=== PATIENT | male | born 1980 | race Caucasian/White ===

== ENCOUNTER 2017-12-05 16:15 | Emergency (ER) | payer BC ==
[~2017-12-05] VITALS: Ht 175.3 cm; Wt 109.8 kg
--- NOTE | 2017-12-05 16:55 | Emergency Room Report ---
History of Present Illness General Chief Complaint: Sore Throat Source: Patient Present Illness HPI 37-year-old male presents to the emergency department complaining of 4 out of 10 in severity sore throat with white spots 3 days. Patient states beginning Saturday afternoon until Saturday morning he was experiencing fevers and sweats. He reports multiple ill contacts at his work. He denies cough, nasal congestion or rhinorrhea. Patient states he took some DayQuil. Reports swollen tonsils. Throat pain is exacerbated upon swallowing. Denies ear pain, high fevers, lethargy, neck pain/stiffness, irritability, photophobia dehydration, N/V/D. Denies Cp, Palpitations, LOC, AMS, seizures, paresthesias, or changes in Hearing or vision, no Sudden severe MURILLO. Allergies: Coded Allergies: No Known Allergies (Unverified , 12/05/17) Patient History Past Medical History: see triage record Past Surgical History: none Pertinent Family History: none Reviewed Nursing Documentation: PMH: Agreed; PSxH: Agreed Nursing Documentation-PMH Past Medical History: No Stated History Review of Systems All Other Systems: negative except mentioned in HPI Physical Exam Vital Signs Date Time Temp Pulse Resp B/P (MAP) Pulse Ox O2 Delivery O2 Flow Rate FiO2 12/05/17 16:36 98.5 67 16 124/66 96 Room Air 98.4 Sp02 EP Interpretation: reviewed, normal General Appearance: no apparent distress, alert, GCS 15, non-toxic Head: normocephalic, atraumatic Eyes: bilateral eye normal inspection, bilateral eye PERRL ENT: normal voice, TMs + canals normal, uvula midline, moist mucus membranes, tonsillar swelling, pharyngeal erythema, tonsillar exudate Neck: full range of motion, no meningismus Respiratory: chest non-tender, lungs clear, normal breath sounds, speaking full sentences Cardiovascular #1: regular rate, rhythm Musculoskeletal: back normal, gait/station normal, normal range of motion, non- tender Neurologic: alert, oriented x3, responsive, motor strength/tone normal, sensory intact, speech normal, grossly normal Psychiatric: judgement/insight normal Skin: normal color, no rash, warm/dry, well hydrated Lymphatic: other - bilateral subparotid LAD Medical Decision Making PA Attestation Dr. Dumont is my supervising Physician whom patient management has been discussed with. Diagnostic Impression: Primary Impression: Pharyngitis Qualified Codes: J02.0 - Streptococcal pharyngitis ER Course 37-year-old male presents to the emergency department complaining of 4 out of 10 in severity sore throat with white spots 3 days. Patient states beginning Saturday afternoon until Saturday morning he was experiencing fevers and sweats. He reports multiple ill contacts at his work. He denies cough, nasal congestion or rhinorrhea. Patient states he took some DayQuil. Reports swollen tonsils. Throat pain is exacerbated upon swallowing. Denies ear pain, high fevers, lethargy, neck pain/stiffness, irritability, photophobia dehydration, N/V/D. Denies Cp, Palpitations, LOC, AMS, seizures, paresthesias, or changes in Hearing or vision, no Sudden severe MURILLO. Ddx considered but are not limited to: pharyngitis, strep, [employer], ludwigs angina, URI Vital signs: are WNL, pt. is afebrile H&PE are most consistent with: pharyngitis presumed strep. ORDERS: None required at this time as the diagnosis is clinical ED INTERVENTIONS: 8mg Decadron IM DISCHARGE: At this time pt. is stable for d/c to home. Will provide printed patient care instructions, and any necessary prescriptions. Care plan and follow up instructions have been discussed with the patient prior to discharge. Last Vital Signs Date Time Temp Pulse Resp B/P (MAP) Pulse Ox O2 Delivery O2 Flow Rate FiO2 12/05/17 16:36 98.5 67 16 124/66 96 Room Air 98.4 Disposition: HOME, SELF-CARE Condition: Stable Patient Instructions: Strep Throat, Sore Throat Additional Instructions: Take medications as directed. Follow up with a Primary Care Provider in 3-5 days, even if your symptoms have resolved. --Please review list of primary care clinics, if you do not already have a primary care provider Return sooner to ED if new symptoms occur, or current symptoms become worse. - Please note that this Emergency Department Report was dictated using [employer] tester technology software, occasionally this can lead to erroneous entry secondary to interpretation by the dictation equipment. Ijeoma Goyal Dec 05, 2017 16:55
[2017-12-05] MEDS ORDERED: Dexamethasone 4mg/ml vial IM ONE (17:00)
[2017-12-05] MEDS ORDERED: AUGMENTIN 875-1 EAC1 ORAL (17:09)
[2017-12-05] MEDS ORDERED: TYLENOL EXTRA500 MG ORAL (17:09)
[2017-12-05 17:13] VITALS: BP 135/68
[2017-12-05 17:18] VITALS: BP 135/68
== END 2017-12-05 17:18 | disposition home or self-care (01) ==
LOC: EMR 17:05
DX: J02.9 Acute pharyngitis, unspecified (principal)
CPT/HCPCS: 96372; 99283; J1100

== ENCOUNTER 2017-12-12 05:48 | Emergency (ER) | payer OTHER ==
[~2017-12-12] VITALS: Ht 175.3 cm; Wt 111.1 kg
[~2017-12-12 05:48] MED LIST: AUGMENTIN 875-1 EAC1 ORAL; TYLENOL EXTRA500 MG ORAL
[2017-12-12] MEDS ORDERED: NKM (06:05)
[2017-12-12 06:10] VITALS: BP 128/58
--- NOTE | 2017-12-12 06:12 | Emergency Room Report ---
History of Present Illness General Chief Complaint: Skin Rash/Abscess Source: Patient Present Illness HPI 37-year-old male p/w rash on neck, back, face, arms for 1 days. States that it occurred while he was taking Augmentin, states that the same thing happened to him a few years ago while taking amoxicillin Rash is limited to skin and does not involve mucosal surfaces. ? severe itchiness, no pain. Denies fever or chills, throat swelling, sob. No n/v/d. No new detergents, no exposure to outside grass/plants/poison stone, no new pets Allergies: Coded Allergies: No Known Allergies (Unverified , 12/05/17) Patient History Past Medical History: see triage record Past Surgical History: none Pertinent Family History: none Reviewed Nursing Documentation: PMH: Agreed; PSxH: Agreed Nursing Documentation-PMH Past Medical History: No Stated History Review of Systems All Other Systems: negative except mentioned in HPI Physical Exam Vital Signs Date Time Temp Pulse Resp B/P (MAP) Pulse Ox O2 Delivery O2 Flow Rate FiO2 12/12/17 05:59 97.7 67 18 128/58 98 Room Air 97.7 Sp02 EP Interpretation: reviewed, normal General Appearance: alert, GCS 15, non-toxic, mild distress Head: normocephalic, atraumatic Eyes: bilateral eye normal inspection, bilateral eye PERRL, bilateral eye EOMI ENT: normal ENT inspection, normal pharynx, normal voice, moist mucus membranes Neck: normal inspection, full range of motion, supple Respiratory: normal inspection, lungs clear, normal breath sounds, no respiratory distress, no retraction, no wheezing, speaking full sentences, chest symmetrical Cardiovascular #1: normal inspection, regular rate, rhythm, no edema, normal capillary refill Cardiovascular #2: 2+ radial (R), 2+ radial (L) Gastrointestinal: normal inspection, non tender, soft, non-distended, no guarding Genitourinary: no CVA tenderness Musculoskeletal: normal inspection, back normal, normal range of motion, non- tender Neurologic: normal inspection, alert, oriented x3, responsive, motor strength/ tone normal, sensory intact, normal gait, speech normal Psychiatric: normal inspection, judgement/insight normal, memory normal Skin: other - Diffuse urticarial rash noted on arms abdomen neck face, blanching, nontender Medical Decision Making Diagnostic Impression: Primary Impression: Allergic reaction ER Course 37-year-old male with rash after taking Augmentin, no mucosal involvement, no shortness of breath DDX: Allergic reaction vs. eczema vs. contact dermatitis vs. viral exanthem Plan: Benadryl Decadron ER course: Patient has remained stable in ED Given meds, stable Disposition: Patient will be discharged to home. Strict return precautions discussed with patient such as fever, chills, rapid spread of rash, chest pain, sob, throat swelling, n/v/d. Patient is to follow up with their PMD within 5 days. Patient verbalized understanding and agrees with plan. Please note that this Emergency Department Report was dictated using [employer] director technology software, occasionally this can lead to erroneous entry secondary to interpretation by the dictation equipment Last Vital Signs Date Time Temp Pulse Resp B/P (MAP) Pulse Ox O2 Delivery O2 Flow Rate FiO2 12/12/17 05:59 97.7 67 18 128/58 98 Room Air 97.7 Disposition: HOME, SELF-CARE Condition: Improved Patient Instructions: Chris [id number] Doc Mcginnis M.D. Dec 12, 2017 06:12
[2017-12-12] MEDS ORDERED: Dexamethasone 4mg/ml vial IM ONE (06:15)
[2017-12-12 06:20] VITALS: BP 128/58
== END 2017-12-12 06:20 | disposition home or self-care (01) ==
LOC: EMR 06:12
DX: T78.40XA Allergy, unspecified, initial encounter (principal); X58.XXXA Exposure to other specified factors, initial encounter; R21 Rash and other nonspecific skin eruption
CPT/HCPCS: 96372; 99283; J1100